=== PATIENT | female | born 1990 | race Caucasian/White ===

== ENCOUNTER 2017-01-02 09:17 | Emergency (ER) | payer SELFPAY ==
[2017-01-02 09:35] VITALS: BMI 19.5
[2017-01-02] MEDS ORDERED: SODIUM CHLORIDE 1,000 ML IV STA (09:49)
--- NOTE | 2017-01-02 09:49 | PDOC ---
History of Present Illness - General Chief Complaint: Pain, Acute Stated Complaint: ABD/ BACK PAIN, VOMITING Time Seen by Provider: 01/02/17 09:40 History Source: Patient Exam Limitations: No Limitations - History of Present Illness Initial Comments: CHIEF COMPLAINT: 26 y/o febrile, tachycardic female with no significant PMH c/ o dysuria, fever and left back pain for the past 3 days. HISTORY OF PRESENT ILLNESS: The patient developed nausea and vomiting this morning. She has been taking tylenol and advil for the fever with last dose of tylenol at 4:30am. she denies cough, CP, SOB, hematuria. Vital signs on arrival are notable for pulse of 123 secondary to temp of 101.5 REVIEW OF SYSTEMS: GENERAL/CONSTITUTIONAL: + fever/chills. No weakness. No weight change. HEAD, EYES, EARS, NOSE AND THROAT: No change in vision. No ear pain or discharge. No sore throat. CARDIOVASCULAR: No chest pain or shortness of breath. RESPIRATORY: No cough, wheezing, or hemoptysis. GASTROINTESTINAL: +nausea and vomiting. No diarrhea or constipation. GENITOURINARY: +dysuria and frequency. MUSCULOSKELETAL: No joint or muscle swelling or pain. No neck pain. +left sided back pain. SKIN: No rash or easy bruising. NEUROLOGIC: No headache, vertigo, loss of consciousness, or loss of sensation. PHYSICAL EXAM: GENERAL: The patient is awake, alert, and fully oriented, in no acute distress. She is non toxic but ill appearing. HEAD: Normal with no signs of trauma. ENT: Pupils equal, round and reactive to light, extraocular movements intact, sclera anicteric, conjunctiva clear. Lips dry. Mucous membranes moist. LUNGS: Clear to auscultation bilaterally. Normal excursion. No respiratory distress or use of accessory muscles. CV: RRR, S1/S2, no MRG. Cap refill < 2 sec. ABDOMEN: Soft, non-distended, TTP of suprapubic region and left flank. BACK: Exquisite left CVA tenderness to fist percussion. EXTREMITIES: Normal range of motion, no edema. NEUROLOGICAL: Normal speech, normal gait. CN II-XII grossly intact. PSYCH: Normal mood, normal affect. SKIN: Warm, dry, normal turgor, no rashes or lesions noted. Past History - Past Medical History Allergies/Adverse Reactions: Allergies Allergy/AdvReac Type Severity Reaction Status Date / Time propofol Allergy Intermediate itchy rash Verified 01/02/17 09:31 Home Medications: Ambulatory Orders Ibuprofen [Motrin -] 600 mg PO Q6H #20 tablet 01/02/17 Sulfamethoxazole/Trimethoprim [Bactrim Ds -] 1 tab PO BID #28 tablet 01/02/17 Asthma: No Cancer: No Cardiac Disorders: No Diabetes: No GI Disorders: Yes (GALLSTONES) HTN: No Seizures: No Thyroid Disease: No - Psycho/Social/Smoking Cessation Hx Suicidal Ideation: No Smoking History: Never smoked Have you smoked in the past 12 months: No Hx Alcohol Use: No Drug/Substance Use Hx: No Hx Substance Use Treatment: No *Physical Exam - Vital Signs Last Vital Signs Temp Pulse Resp BP Pulse Ox 101.5 F H 123 H 20 132/65 96 01/02/17 09:31 01/02/17 09:31 01/02/17 09:31 01/02/17 09:31 01/02/17 09:31 ED Treatment Course - LABORATORY CBC & Chemistry Diagram: 01/02/17 10:40 01/02/17 10:40 Medical Decision Making - Medical Decision Making A/P: 26 y/o febrile, tachycardic female with most likely UTI and pyelonephritis. Plan is as follows: 1. Septic work up 2. IV fluids 3. IV ofirmev 4. Kidney ultrasound Ultrasound IMPRESSION: both kidneys appear unremarkable Ordered IV Ceftriaxone Ordered IV toradol CT scan abd/pelvis IMPRESSION: Status post cholecystectomy. Mild hepatosplenomegaly. 3mm nonobstructing right renal upper pole stone. There is no evidence of small bowel obstruction. Fluid filled small bowel loop versus small amount of free fluid in the right adnexa. Correlation with pelvis ultrasound would be helpful for further evaluation. Vital signs improved. Will discharge to home with a dx of pyelonephritis and an rx for bactrim Instructed the patient to drink plenty of fluids, take 600mg of Motrin every 6 hours with food for pain and take 650mg of Tylenol every 4 hours for fever. Instructed the patient to return to the ER immediately with any worsening or concerning symptoms. The patient verbalizes understanding of all instructions, has no further questions and is awaiting discharge. *DC/Admit/Observation/Transfer Diagnosis at time of Disposition: Acute pyelonephritis - Discharge Dispostion Disposition: HOME Condition at time of disposition: Improved - Patient Instructions Printed Discharge Instructions: DI for Kidney Infection Additional Instructions: Discharge Instructions: -Antibiotics have been sent to your pharmacy at [facility] in [facility]. -Take 600mg of Motrin every 6 hours for pain with food -Drink at least 64oz of water daily -Take Tylenol every 4 hours for fever -Follow up with your doctor within 1 week -Return to the ER with any worsening or concerning symptoms Print Language: BAHAMIAN
[2017-01-02] MEDS ORDERED: ACETAMINOPHEN 1000 MG/100 ML VIAL (NON FORMULARY) IVPB ONE (09:50)
[2017-01-02 10:02] LABS: URINE APPEARANCE SLCLOUDY; URINE BILIRUBIN NEGATIVE (NEGATIVE); URINE COLOR YELLOW; URINE GLUCOSE (UA) NEGATIVE (NEGATIVE); URINE KETONE 1+ (NEGATIVE); URINE NITRITE NEGATIVE (NEGATIVE); URINE UROBILINOGEN NEGATIVE E.U./dl (0.2-1.0)
[2017-01-02 10:11] LABS: URINE BLOOD 3+ (NEGATIVE); URINE LEUK ESTERASE 2+ (NEGATIVE); URINE PROTEIN 2+ (NEGATIVE)
[2017-01-02 10:12] LABS: URINE BACTERIA MANY /hpf (NONE SEEN); URINE MUCUS MODERATE; URINE RBC 3 /hpf (0-3); URINE WBC 92 /hpf (3-5)
[2017-01-02 10:46] LABS: BASOPHIL 0.4 % (0-2.0); MCH 31.2 pg (25.7-33.7); MCHC 34.3 g/dl (32.0-36.0); MEAN CELL VOLUME 90.9 fl (80-96); MEAN PLT VOLUME 8.9 fl (7.5-11.1); NEUTROPHILS 88.3 % (42.8-82.8); PLATELET COUNT 194 K/MM3 (134-434); RDW 12.1 % (11.6-15.6); WHITE BLOOD COUNT 14.4 K/mm3 (4.0-10.0)
--- NOTE | 2017-01-02 11:15 | PDOC ---
*Physical Exam - Vital Signs Last Vital Signs Temp Pulse Resp BP Pulse Ox 101.5 F H 123 H 20 132/65 96 01/02/17 09:31 01/02/17 09:31 01/02/17 09:31 01/02/17 09:31 01/02/17 09:31 ED Treatment Course - LABORATORY CBC & Chemistry Diagram: 01/02/17 10:40 01/02/17 10:40 - ADDITIONAL ORDERS Additional order review: Laboratory Results 01/02/17 01/02/17 01/02/17 10:49 10:40 09:30 Lactic Acid 0.894 Urine Color Yellow Urine Appearance Slcloudy Urine pH 6.0 Ur Specific [place] 1.020 Urine Protein 2+ H Urine Glucose (UA) Negative Urine Ketones 1+ H Urine Blood 3+ H Urine Nitrite Negative Urine Bilirubin Negative Urine Urobilinogen Negative Ur Leukocyte Esterase 2+ H Urine RBC 3 Urine WBC 92 Ur Epithelial Cells Few Urine Bacteria Many Urine Mucus Moderate Urine HCG, Qual Negative 01/02/17 10:40 RBC 4.17 D MCV 90.9 MCHC 34.3 RDW 12.1 D MPV 8.9 D Neutrophils % 88.3 H Lymphocytes % 5.4 L D Monocytes % 5.9 Eosinophils % 0.0 D Basophils % 0.4 - Medications Given in the ED: ED Medications Discontinued Medications Generic Name Dose Route Start Last Admin Trade Name Freq PRN Reason Stop Dose Admin Sodium Chloride 1,000 mls @ 1,000 mls/hr 01/02/17 09:49 01/02/17 10:24 Normal Saline - IV 01/02/17 10:48 1,000 mls/hr ASDIR STA Administration Medical Decision Making - Medical Decision Making 01/02/17 11:14 Patient seen and evaluated with the nurse practitioner. I agree with the overall evaluation, assessment, and management with the following summary of visit: Healthy and non 26 shows female presents with fever and tachycardia and urinary complaints. Agree with assessment and management as outlined, IV antibiotics for pyelonephritis, IV fluids and reassess *DC/Admit/Observation/Transfer Diagnosis at time of Disposition: Acute pyelonephritis
[2017-01-02 11:17] LABS: ALBUMIN 3.9 g/dl (3.4-5.0); ALK PHOS 77 U/L (45-117); ANION GAP 10 (8-16); BILIRUBIN,TOTAL 0.7 mg/dL (0.2-1.0); CALCIUM 8.5 mg/dL (8.5-10.1); CO2 28 mmol/L (21-32); CREATININE 0.7 mg/dL (0.55-1.02); GLUCOSE,RANDOM 113 mg/dL (74-106); SGOT/AST 19 U/L (15-37); SGPT/ALT 20 U/L (12-78); TOT PROT 7.6 g/dl (6.4-8.2)
[2017-01-02] MEDS ORDERED: CEFTRIAXONE 1,000 MG in DEXTROSE 5%-WATER - 50 ML IVPB ONE (11:19)
[2017-01-02] MEDS ORDERED: ACETAMINOPHEN INJECTION 100 ML IVPB ONE (11:31)
[2017-01-02] MEDS ORDERED: CEFTRIAXONE 50 ML ONE (11:48)
[2017-01-02] MEDS ORDERED: KETOROLAC TROMETHAMINE 30 MG/1 ML VIAL ONE (12:11)
[2017-01-02 13:52] VITALS: BP 116/66; PULSE 98; TEMP 99.4
== END 2017-01-02 14:14 | disposition home or self-care (01) ==
LOC: JER 09:17
PROC: 3E033NZ Introduction of Analgesics, Hypnotics, Sedatives into Peripheral Vein, Percutaneous Approach (ICD-10-PCS; principal; 2017-01-02)
PROC: 3E03329 Introduction of Other Anti-infective into Peripheral Vein, Percutaneous Approach (ICD-10-PCS; 2017-01-02)
PROC: 3E0337Z Introduction of Electrolytic and Water Balance Substance into Peripheral Vein, Percutaneous Approach (ICD-10-PCS; 2017-01-02)
DX: N10 Acute pyelonephritis (principal)
CPT/HCPCS: 36415; 74176-TC; 76775-TC; 80053; 81003; 81015; 83605; 84703; 85025; 87040; 87086; 87186; 99282-25

== ENCOUNTER 2021-02-12 11:25 | Emergency (ER) | payer OTHER ==
[2021-02-12 11:29] VITALS: TEMP 97.8; BMI 26.6
[2021-02-12] MEDS ORDERED: ACETAMINOPHEN 500 MG TABLET (FP) PO ONE (12:08)
[2021-02-12] MEDS ORDERED: ACETAMINOPHEN 500 MG TABLET (FP) ONE (12:43)
[2021-02-12 13:02] LABS: BASO % 0.6 % (0-2.0); EOS % 0.6 % (0-4.5); HEMATOCRIT 39.5 % (32.4-45.2); HEMOGLOBIN 14.3 GM/dL (10.7-15.3); LYMPH % 28.5 % (8-40); MCH 32.3 pg (25.7-33.7); MCHC 36.2 g/dl (32.0-36.0); MEAN PLT VOLUME 9.5 fl (7.5-11.1); MONO % 5.7 % (3.8-10.2); NEUT % 64.6 % (42.8-82.8); PLATELET COUNT 275 K/MM3 (134-434); RBC 4.43 M/mm3 (3.60-5.2); WHITE BLOOD COUNT 6.9 K/mm3 (4.0-10.0)
[2021-02-12 13:09] LABS: INR 1.02 (0.83-1.09); PROTHROMBIN TIME (PATIENT) 12.3 SEC (9.7-13.0)
[2021-02-12 13:28] LABS: CALCIUM 9.6 mg/dL (8.5-10.1)
[2021-02-12 13:29] LABS: ALBUMIN 4.2 g/dl (3.4-5.0)
[2021-02-12 13:32] LABS: CREATININE 0.6 mg/dL (0.55-1.3)
[2021-02-12 13:34] LABS: BILIRUBIN,TOTAL 0.6 mg/dL (0.2-1); TOT PROT 8.4 g/dl (6.4-8.2)
[2021-02-12 13:37] LABS: EPI CELLS 7 /uL (0-25.1); HYALINE CASTS 0 /uL (0-3.1); PH,URINE 5.5 (5.0-8.0); URINE APPEARANCE CLEAR; URINE BACTERIA 240 /uL (0-1359); URINE BILIRUBIN NEGATIVE (NEGATIVE); URINE COLOR YELLOW; URINE GLUCOSE (UA) NEGATIVE (NEGATIVE); URINE KETONE NEGATIVE (NEGATIVE); URINE LEUK ESTERASE NEGATIVE (NEGATIVE); URINE NITRITE NEGATIVE (NEGATIVE); URINE PROTEIN NEGATIVE (NEGATIVE); URINE RBC 3 /uL (0-23.9); URINE UROBILINOGEN 0.2 mg/dL (0.2-1.0); URINE WBC 4 /uL (0-25.8)
[2021-02-12 13:41] LABS: HCG,QUALITATIVE URINE Borderline hCG level
[2021-02-12 14:15] VITALS: BP 105/66; PULSE 84
== END 2021-02-12 15:05 | disposition home or self-care (01) ==
LOC: JER 11:25
DX: O26.851 Spotting complicating pregnancy, first trimester (principal); N83.292 Other ovarian cyst, left side; Z3A.01 Less than 8 weeks gestation of pregnancy
CPT/HCPCS: 36415; 76830-TC; 80053; 81003; 84702; 84703; 85025; 85610; 86850; 86900; 86901; 87086; 99284-25

== ENCOUNTER 2021-02-12 19:42 | Emergency (ER) | payer OTHER ==
[2021-02-12 19:49] VITALS: BP 130/80; PULSE 113; TEMP 98.6; BMI 28.1
[2021-02-12] MEDS ORDERED: ACETAMINOPHEN 500 MG TABLET (FP) PO ONE (20:47)
[2021-02-12] MEDS ORDERED: ACETAMINOPHEN 500 MG TABLET (FP) ONE (20:52)
== END 2021-02-12 21:04 | disposition home or self-care (01) ==
LOC: JER 19:42
DX: O26.851 Spotting complicating pregnancy, first trimester (principal); N83.292 Other ovarian cyst, left side; Z3A.01 Less than 8 weeks gestation of pregnancy
CPT/HCPCS: 99283-25

== ENCOUNTER 2021-02-14 10:31 | Emergency (ER) | payer OTHER ==
[2021-02-14 10:41] VITALS: BP 114/71; PULSE 77; TEMP 98.5; BMI 31.1
== END 2021-02-14 12:50 | disposition home or self-care (01) ==
LOC: JERFT 10:31
DX: Z32.01 Encounter for pregnancy test, result positive (principal)
CPT/HCPCS: 36415; 84443; 84702; 99283-25